=== PATIENT | female | born 1990 | race Caucasian/White ===

== ENCOUNTER 2016-05-02 10:08 | Outpatient (CLI) | payer OTHER ==
[2016-05-02 10:33] LABS: Appearance,Urine Cloudy (Clear); Bilirubin,Urine Negative (Negative); Glucose,Urine (UA) Negative (Negative); Ketones,Urine Negative (Negative); Leukocyte Esterase,Urine Large (Negative); Nitrite,Urine Negative (Negative); Particle Count 21190; Protein,Urine 1+ (Negative); RBC,Urine 2 /hpf (0-5); Specific Gravity,Urine 1.013 (1.001-1.035); Squamous Epithelial Cell,Urine 43 /hpf (0-4); UA Billing (MACRO vs. MICRO) MICRO; Urobilinogen,Urine <2.0 mg/dL (<2.0); WBC,Urine 28 /hpf (0-5)
[2016-05-02 11:05] LABS: Basophils # (A) 0.1 k/uL (0-0.2); Basophils % (A) 1 %; CH 29.3; Eosinophils # (A) 0.1 k/uL (0-0.7); Eosinophils % (A) 1 %; HCT 35.5 % (34.0-46.0); HDW 2.64; HGB 11.9 gm/dL (11.4-16.0); Luc # (Auto) 0.38; Luc % (Auto) 3; Lymphocytes # (A) 1.6 k/uL (1.0-4.8); Lymphocytes % (A) 15 %; MCHC 33.5 g/dL (31.0-37.0); MCV 86.8 fL (80.0-100.0); Mean Platelet Volume 8.3; Monocytes # (A) 0.4 k/uL (0-1.0); Monocytes % (A) 4 %; Neutrophils # (A) 8.5 k/uL (1.3-7.7); Neutrophils % (A) 77 %; RBC 4.09 m/uL (3.80-5.40); RDW 14.5 % (11.5-15.5); WBC 11.1 k/uL (3.8-10.6); WBC (Perox) 11.94
[2016-05-02 11:26] LABS: ALT 25 U/L (9-52); AST 20 U/L (14-36); LDH 371 U/L (313-618); Non-African American GFR(MDRD) >60 (>60 ml/min/1.73 sqM); Uric Acid 5.3 mg/dL (3.7-7.4)
== END 2016-05-02 12:05 | disposition home or self-care (01) ==
LOC: FBPOP 10:08
PROVIDERS: ATTEND Obstetrics & Gynecology
DX: Z53.9 Procedure and treatment not carried out, unspecified reason (principal)
CPT/HCPCS: 59025; 81001; 82565; 83615; 84450; 84460; 84550; 85025

== ENCOUNTER → 2016-05-05 | Outpatient (CLI) | payer OTHER ==
--- NOTE | 2016-05-05 10:27 | US ---
EXAMINATION TYPE: US OB anatomy transabd DATE OF EXAM: 05/05/2016 10:22 AM COMPARISON: NONE HISTORY: Large for Dates TECHNIQUE: TA EXAM MEASUREMENTS: GESTATIONAL AGE / DATING Physician Established: (35 weeks/5 days) EDC: 06/04/2016 Dates by LMP: (35 weeks/5 days) EDC: 06/04/2016 Dates by First Scan: No Previous Dates by Current Scan for: (35 weeks/5 days) EDC: 06/04/2016 SURVEY IUP: viable PLACENTA: Posterior, fundal PREVIA: no ANDREW: 24.3 cm wnl CERVICAL LENGTH difficult to measure d/t empty bladder and position BIOMETRY PRESENTATION: Breech LIE: Longitudinal, Spine to maternal right BPD: 9.1 cm 36 weeks / 5 days HC: 32.5 cm 36 weeks / 6 days AC: 32.4 cm 36 weeks / 2 days FL: 6.9 cm 35 weeks / 2 days ESTIMATED WEIGHT IN GRAMS: 2854 grams ESTIMATED WEIGHT IN LBS/OZS: 6 lbs. 5 oz. WEIGHT PERCENTAGE BASED ON ESTABLISHED DATE: 61.5 % HC/AC: 1.0 FL/AC: 21.1 HEART RATE: 142 bpm RHYTHM: Normal ANATOMY SEEN (within normal limits): * Lateral Vent (< 1 cm) 1.0 cm Suboptimal d/t position and age. * Cisterna Magna (< 1.1 cm) Suboptimal d/t position and age. cm * Nuchal Fold (< 0.6 cm) Suboptimal d/t position and age. cm * Cerebellum (varies with age) Suboptimal d/t position and age. cm Choroid Plexus (bilateral)Suboptimal d/t position and age. Midline Falx Cavus Septi Pellucidi Four Chamber Heart Outflow tracts: LVOT/RVOT Stomach Situs Nose / Lips Diaphragm Kidneys (bilateral) Bladder Cord Insert Three Vessel Cord Longitudinal Spine Suboptimal d/t position Transverse Spine Suboptimal d/t position Arms (bilateral) Legs (bilateral)2nd femur Suboptimal d/t position ANATOMY SEEN (does not appear within normal limits): ANATOMY NOT SEEN: MATERNAL WALL MEASUREMENT: cm from skin to anterior uterine wall (if exam limited due to body habitus ). IMPRESSION: Normal, viable 35+ week IUP
== END ==
LOC: RADUSWWP 09:19
PROVIDERS: ATTEND Obstetrics & Gynecology
DX: O36.63X0 Maternal care for excessive fetal growth, third trimester, not applicable or unspecified (principal)
CPT/HCPCS: 76811

== ENCOUNTER 2016-05-11 12:39 | Inpatient (IN) | payer OTHER ==
[2016-05-11] MEDS ORDERED: LACTATED RINGERS 1,000 ML IV SCH (13:15)
[2016-05-11] MEDS ORDERED: ceFAZolin 2 GM in SODIUM CHLORIDE 0.9% 100 ML IVPB ONE (13:22)
[2016-05-11] MEDS ORDERED: CITRIC ACID-SODIUM CITRATE 15 ML CUP PO ONE (13:22)
[2016-05-11] MEDS ORDERED: LABETALOL SYRINGE 5 MG/ML IVP STA (13:25)
[2016-05-11 13:41] LABS: Basophils # (A) 0.1 k/uL (0-0.2); Basophils % (A) 0 %; CH 29.2; CHCM 34.4; Eosinophils # (A) 0.1 k/uL (0-0.7); Eosinophils % (A) 1 %; HCT 34.5 % (34.0-46.0); HDW 2.67; HGB 12.1 gm/dL (11.4-16.0); Luc # (Auto) 0.43; Luc % (Auto) 4; Lymphocytes # (A) 1.9 k/uL (1.0-4.8); Lymphocytes % (A) 15 %; MCH 29.9 pg (25.0-35.0); MCHC 35.1 g/dL (31.0-37.0); MCV 85.2 fL (80.0-100.0); Mean Platelet Volume 8.5; Monocytes # (A) 0.5 k/uL (0-1.0); Monocytes % (A) 4 %; Neutrophils # (A) 9.6 k/uL (1.3-7.7); Neutrophils % (A) 77 %; RBC 4.05 m/uL (3.80-5.40); RDW 14.8 % (11.5-15.5); WBC 12.5 k/uL (3.8-10.6); WBC (Perox) 12.14
[2016-05-11 13:56] LABS: ALT 27 U/L (9-52); AST 20 U/L (14-36); Blood Urea Nitrogen 8 mg/dL (7-17); LDH 418 U/L (313-618); Non-African American GFR(MDRD) >60 (>60 ml/min/1.73 sqM)
--- NOTE | 2016-05-11 14:15 | P.HPOB ---
History of Present Illness H&P Date: 05/11/16 Chief Complaint: severe pre-eclampsia 26 year old presents at 36 weeks 5 days with severely elevated blood pressures and baby in breech presentation. She was diagnosed with mild pre- eclampsia last week with 24 hour urine protein of 425mg. Her BPs are up to 160/ 110 and so she now has pre-eclampsia with severe features. Review of Systems All systems: negative Constitutional: Denies chills, Denies fever Eyes: denies blurred vision, denies pain Ears, nose, mouth and throat: Denies headache, Denies sore throat Cardiovascular: Denies chest pain, Denies shortness of breath Respiratory: Denies cough Gastrointestinal: Denies abdominal pain, Denies diarrhea, Denies nausea, Denies vomiting Genitourinary: Denies dysuria, Denies hematuria Musculoskeletal: Denies myalgias Integumentary: Denies pruritus, Denies rash Neurological: Denies numbness, Denies weakness Psychiatric: Denies anxiety, Denies depression Endocrine: Denies fatigue, Denies weight change Past Medical History Past Medical History: No Reported History Additional Past Medical History / Comment(s): OB history: she has had care with me since the first trimester. A+, abs neg, Rub Imm, HEp B neg. History of Any Multi-Drug Resistant Organisms: None Reported Past Surgical History: No Surgical Hx Reported Past Psychological History: Anxiety Smoking Status: Former smoker Past Alcohol Use History: None Reported Past Drug Use History: None Reported Medications and Allergies Home Medications Medication Instructions Recorded Confirmed Type Pnv with Ca,No.72/Iron/FA 1 each PO DAILY 05/02/16 05/11/16 History [ Plus Tablet] Allergies Allergy/AdvReac Type Severity Reaction Status Date / Time No Known Allergies Allergy Verified 05/11/16 12:54 Exam Osteopathic Statement: *. No significant issues noted on an osteopathic structural exam other than those noted in the History and Physical/Consult. - Vital Signs Vital signs: Intake and Output 05/10/16 05/11/16 05/11/16 22:59 06:59 14:59 Other: Weight 103.419 kg Patient Weight 05/12/16 06:59 Weight 103.419 kg Heart: RRR Lungs: CTAB Abdomen: soft, nontender Extremeties: neg paddy's Results Result Diagrams: 05/11/16 13:27 05/11/16 13:27 Abnormal Lab Results - Last 24 Hours (Table) 05/11/16 Range/Units 13:27 WBC 12.5 H (3.8-10.6) k/uL Neutrophils # 9.6 H (1.3-7.7) k/uL Assessment and Plan (1) Pre-eclampsia, severe Status: Acute Plan: 1. prep for primary low transverse 2. antihypertensives 3. mag sulfate after delivery
[2016-05-11 14:22] LABS: INR 0.9 (<1.1); Partial Thromboplastin Time 22.9 sec (22.0-30.0); Prothrombin Time 9.4 sec (9.0-12.0)
[2016-05-11] MEDS ORDERED: KETOROLAC 30 MG/ML 1 ML VIAL ONE (14:36)
[2016-05-11] MEDS ORDERED: ONDANSETRON 4 MG/2 ML VIAL ONE (14:36)
[2016-05-11] MEDS ORDERED: ePHEDrine 50 MG/ML 1 ML AMP ONE (14:36)
[2016-05-11] MEDS ORDERED: MORPHINE SULFATE (PF) 0.3 MG/0.3 ML SYR ONE (14:36)
[2016-05-11] MEDS ORDERED: NALBUPHINE 10 MG/ML AMPUL ONE (14:36)
[2016-05-11] MEDS ORDERED: LABETALOL 5 MG/ML VIAL MDV ONE (14:36)
[2016-05-11] MEDS ORDERED: OXYTOCIN 10 UNIT/ML 1 ML VIAL IM ONE (14:36)
[2016-05-11] MEDS ORDERED: diphenhydrAMINE 50 MG/ML 1 ML VIAL ONE (14:36)
[2016-05-11] MEDS ORDERED: diphenhydrAMINE 25 MG CAP PO PRN (15:22)
[2016-05-11] MEDS ORDERED: diphenhydrAMINE 50 MG/ML 1 ML VIAL IVP PRN ×2 (15:22)
[2016-05-11] MEDS ORDERED: ACETAMINOPHEN TAB 325 MG TAB PO PRN (15:22)
[2016-05-11] MEDS ORDERED: NALOXONE 0.4 MG/ML 1 ML VIAL IV PRN (15:22)
[2016-05-11] MEDS ORDERED: Acetaminophen-Codeine 300-30mg TAB PO PRN (15:22)
[2016-05-11] MEDS ORDERED: LANOLIN CREAM 5 GM TUBE TOPICAL PRN (15:22)
[2016-05-11] MEDS ORDERED: METOCLOPRAMIDE 5 MG/ML 2 ML VIAL IVP PRN (15:22)
[2016-05-11] MEDS ORDERED: SIMETHICONE 80 MG CHEWABLE PO PRN (15:22)
[2016-05-11] MEDS ORDERED: ONDANSETRON 4 MG/2 ML VIAL IVP PRN (15:22)
[2016-05-11] MEDS ORDERED: ZOLPIDEM 5 MG TAB PO PRN (15:22)
[2016-05-11] MEDS ORDERED: diphenhydrAMINE 50 MG CAP PO PRN (15:22)
[2016-05-11] MEDS ORDERED: MAGNESIUM SULFATE-WATER PMX 4 GM in WATER FOR INJECTION 50 50ML.BAG IVPB ONE (15:23)
[2016-05-11] MEDS ORDERED: OXYTOCIN 30 UNITS/500 ML NS 30 UNIT in SALINE 1 500ML.BAG IV SCH (15:30)
[2016-05-11] MEDS: MAGNESIUM SULFATE-WATER PMX 20 GM in WATER FOR INJECTION 1 500ML.BAG IV SCH (16:58)
[2016-05-11] MEDS: LACTATED RINGERS 1,000 ML IV SCH (18:09)
[2016-05-11] MEDS: KETOROLAC 30 MG/ML 1 ML VIAL IVP SCH (18:11)
[2016-05-12] MEDS: KETOROLAC 30 MG/ML 1 ML VIAL IVP SCH ×4 (00:10→17:38)
[2016-05-12] MEDS: LACTATED RINGERS 1,000 ML IV SCH (01:16)
[2016-05-12] MEDS: SENNOSIDES-DOCUSATE SODIUM 1 EACH TAB PO SCH ×2 (01:17→07:57)
[2016-05-12] MEDS: MAGNESIUM SULFATE-WATER PMX 20 GM in WATER FOR INJECTION 1 500ML.BAG IV SCH (03:00)
[2016-05-12 06:47] LABS: Basophils % (A) 0 %; CH 28.9; CHCM 33.1; Eosinophils # (A) 0.1 k/uL (0-0.7); Eosinophils % (A) 1 %; HCT 30.7 % (34.0-46.0); HDW 2.46; HGB 10.2 gm/dL (11.4-16.0); Luc # (Auto) 0.39; Luc % (Auto) 3; Lymphocytes # (A) 1.5 k/uL (1.0-4.8); Lymphocytes % (A) 12 %; MCH 29.3 pg (25.0-35.0); MCHC 33.3 g/dL (31.0-37.0); MCV 87.8 fL (80.0-100.0); Mean Platelet Volume 7.5; Monocytes # (A) 0.5 k/uL (0-1.0); Monocytes % (A) 4 %; Neutrophils # (A) 10.4 k/uL (1.3-7.7); Neutrophils % (A) 81 %; RDW 14.8 % (11.5-15.5); WBC 12.8 k/uL (3.8-10.6); WBC (Perox) 13.86
--- NOTE | 2016-05-12 07:18 | P.PNOBGPC ---
Subjective - Subjective Principal diagnosis: S/P 1*LTCS POD #1 Interval history: Patient seen and examined. Denies N/V, F/C, CP, SOB, calf pain. BPs are much better controlled. Patient reports: Reports appetite normal, Reports pain well controlled, Denies nauseated [place]: doing well Objective - Vital Signs Latest vital signs: Vital Signs Temp Pulse Pulse Resp BP Pulse Ox 05/12/16 04:00 98.3 F 91 18 111/74 98 05/12/16 00:00 97.7 F 81 18 106/67 98 05/11/16 20:00 98.6 F 87 20 105/61 95 05/11/16 17:45 97.7 F 81 16 126/67 05/11/16 17:30 73 16 139/71 96 05/11/16 17:15 80 16 146/73 97 05/11/16 17:00 82 16 149/72 96 05/11/16 16:45 97.3 F L 85 16 143/71 97 05/11/16 16:30 72 16 142/67 05/11/16 16:15 75 16 187/93 98 05/11/16 16:00 74 16 137/74 100 05/11/16 15:45 80 16 128/69 99 05/11/16 15:29 97.6 F 84 16 133/84 100 Intake and Output 05/11/16 05/12/16 05/12/16 22:59 06:59 14:59 Intake Total 500 Output Total 175 400 Balance -175 100 Intake: Intake, IV Titration 500 Amount Magnesium Sulfate-Water 500 Pmx 20 gm In Water For Injection 1 500ml.bag @ 2 GM/HR 50 mls/hr IV .Q10H [facility] Rx#:[id number] Output: Urine 175 400 Other: Voiding Method Indwelling Catheter - Exam Lungs: bilateral: normal Chest: Normal S1, Normal S2 Extremities: Present: normal Abdomen: Present: normal appearance, soft. Absent: distention, tenderness Incision: Present: normal, dry, intact Uterus: Present: normal, firm - Labs Labs: Abnormal Lab Results - Last 24 Hours (Table) 05/11/16 05/12/16 Range/Units 13:27 06:33 WBC 12.5 H 12.8 H (3.8-10.6) k/uL RBC 3.50 L (3.80-5.40) m/uL Hgb 10.2 L (11.4-16.0) gm/dL Hct 30.7 L (34.0-46.0) % Neutrophils # 9.6 H 10.4 H (1.3-7.7) k/uL Assessment and Plan (1) Pre-eclampsia, severe Current Visit: Yes Status: Acute Code(s): O14.10 - SEVERE PRE-ECLAMPSIA, UNSPECIFIED TRIMESTER SNOMED Code(s): 87052109 (2) Status post primary low transverse section Narrative/Plan: 1. d/c mag sulfate 2. remove catheter 3. increase ambulation 4. reg diet with flatus Current Visit: Yes Status: Acute Code(s): Z98.891 - HISTORY OF UTERINE SCAR FROM PREVIOUS SURGERY SNOMED Code(s): 223256167
--- NOTE | 2016-05-12 08:41 | P.OP ---
Date of Procedure: 05/11/16 Preoperative Diagnosis: 1. at 36 and 4 2. Preeclampsia severe features 3. Breech presentation Postoperative Diagnosis: 1. at 36 and 4 2. Preeclampsia severe features 3. Breech presentation Procedure(s) Performed: Primary low transverse Anesthesia: spinal Surgeon: Isabel Coretz Nurse Extern #1: Wayne Mir Estimated Blood Loss (ml): 500 IV fluids (ml): 600 Urine output (ml): 100 Pathology: other (Placenta) Condition: stable Disposition: floor Operative Findings: Viable female, Apgars 8, 9, weight 7 lbs. 8 oz. Description of Procedure: Patient was taken to the operating room where spinal anesthesia was found be adequate. She was prepped and draped in normal sterile fashion in dorsal supine position with a leftward tilt. Pfannenstiel skin incision was made the scalpel and carried through to the underlying layer of fascia with the scalpel. Fascia was incised in midline and carried bilaterally with the Villalobos scissors. The superior aspect of the fascial incision was grasped with Steve clamps elevated and the underlying rectus muscles dissected off with the Villalobos's. Attention was then turned to inferior aspect of same incision which in a similar fashion was grasped tented up and the underlying rectus muscles dissected off with the Villalobos's. The rectus muscles were the midline and the peritoneum was identified tented up and entered sharply with the scalpel. The incision was extended superiorly and inferiorly with good visualization of the bladder. The bladder blade was inserted and the vesicouterine peritoneum was incised the Metzenbaums then carried bilaterally and bladder flap created digitally. A low transverse incision was then made on the uterus with the scalpel. This was carried bilaterally and digital manner. Infant's head delivered atraumatically, nose and mouth bulb suctioned, cord clamped and cut, handed off to waiting nurses. Apgars 8,9, weight 7 lbs. 8 oz. Placenta delivered manually, intact with three-vessel cord. The uterus is exteriorized and cleared of all clots and debris. The uterine incision was closed with 0 Vicryl in a running locked fashion. Second layer of the same sutures used in imbricating fashion to obtain excellent hemostasis. Bladder flap was then reapproximated using 2-0 Vicryl in a running fashion. Both ovaries and tubes appeared normal. The uterus was placed back into the abdomen. The peritoneum was reapproximated using 2-0 Vicryl in a running fashion. The muscles were reapproximated using 2-0 Vicryl in interrupted fashion. The fascia was reapproximated using 0 Vicryl in a running fashion. The subcutaneous tissues closed with 3-0 Vicryl running fashion. The skin was closed lara. Patient tolerated the procedure well, sponge and instrument counts were correct times 2 and she was taken to the recovery room in stable condition.
--- NOTE | 2016-05-12 10:57 | P.PN ---
Progress Note - Text 0710 Anesthesia POD 1. Patient is status post section under spinal anesthesia with intra-thecal preservative free morphine 300 g. Mild pruritus, good post-op analgesia, and no headache or other complication.
[2016-05-12] MEDS ORDERED: MEASLES-MUMPS-RUBELLA VACC/PF 12,500 UNIT/0.5 ML VIAL SQ ONE (16:28)
[2016-05-13] MEDS: KETOROLAC 30 MG/ML 1 ML VIAL IVP SCH
[2016-05-13 02:04] VITALS: RESP 16
[2016-05-13] MEDS: SENNOSIDES-DOCUSATE SODIUM 1 EACH TAB PO SCH ×2 (02:05→07:38)
[2016-05-13] MEDS: Acetaminophen-Codeine 300-30mg TAB PO PRN ×2 (03:10→09:36)
[2016-05-13] MEDS: IBUPROFEN 600 MG TAB PO PRN ×2 (05:58→13:25)
--- NOTE | 2016-05-13 07:11 | P.PNOBGPC ---
Subjective - Subjective Principal diagnosis: S/P 1*LTCS POD #2 Interval history: Patient seen and examined. Denies N/V, F/C, CP, SOB, headache or calf pain. BPs have been normal. Patient reports: Reports appetite normal, Reports voiding normally, Reports pain well controlled, Reports ambulating normally [place]: doing well Objective - Vital Signs Latest vital signs: Vital Signs Temp Pulse Resp BP Pulse Ox 05/13/16 00:15 98.6 F 90 16 126/73 05/12/16 15:52 98.6 F 90 18 143/96 97 05/12/16 11:50 98.6 F 91 16 120/73 05/12/16 07:41 98.3 F 85 16 111/66 Intake and Output 05/12/16 05/13/16 05/13/16 22:59 06:59 14:59 Output Total 300 Balance -300 Output: Urine 300 Other: # Voids 1 - Exam Lungs: bilateral: normal Chest: Normal S1, Normal S2 Extremities: Present: normal Abdomen: Present: normal appearance, soft. Absent: distention, tenderness Incision: Present: normal, dry, intact Uterus: Present: normal, firm Assessment and Plan (1) Pre-eclampsia, severe Current Visit: Yes Status: Acute Code(s): O14.10 - SEVERE PRE-ECLAMPSIA, UNSPECIFIED TRIMESTER SNOMED Code(s): 65705402 (2) Status post primary low transverse section Narrative/Plan: 1. cont pp care 2. possible D/C later this afternoon. Current Visit: Yes Status: Acute Code(s): Z98.891 - HISTORY OF UTERINE SCAR FROM PREVIOUS SURGERY SNOMED Code(s): 541971751
[2016-05-13 07:37] VITALS: BP 126/78
[2016-05-13 16:06] VITALS: PULSE 96; TEMP 98.5
--- NOTE | 2016-05-18 16:51 | P.DS ---
Providers Date of admission: 05/11/16 13:23 Expected date of discharge: 05/18/16 Attending physician: Isabel Cortez - Discharge Diagnosis(es) (1) Pre-eclampsia, severe Status: Acute (2) Status post primary low transverse section Status: Acute Hospital Course: Pt presented with pre-eclampsia with severe features. She underwent a primary c- section and had an uncomplicated post course. She will be discharged POD #2 in stable condition to follow up with me in 6 weeks. Patient Condition at Discharge: Good Plan - Discharge Summary New Discharge Prescriptions: Acetaminophen-Codeine 300-30mg [Tylenol w/codeine #3] 2 each PO Q4HR PRN #30 tab PRN Reason: Moderate To Severe Pain Ibuprofen [Motrin] 600 mg PO Q6HR PRN #30 tab PRN Reason: Mild Pain Or Fever >= 100.5 Discharge Medication List Pnv with Ca,No.72/Iron/FA [ Plus Tablet] 1 each PO DAILY 05/02/16 [ History] Acetaminophen-Codeine 300-30mg [Tylenol w/codeine #3] 2 each PO Q4HR PRN #30 tab 05/13/16 [Rx] Ibuprofen [Motrin] 600 mg PO Q6HR PRN #30 tab 05/13/16 [Rx] Follow up Appointment(s)/Referral(s): Isabel Cortez DO [Doctor of Osteopathic Medicine] - 1 Week Discharge Disposition: HOME SELF-CARE
== END 2016-05-13 18:44 | disposition home or self-care (01) | DRG 766 ==
LOC: FBPOP 12:39 → 4FBP 13:23
PROVIDERS: ADMIT Obstetrics & Gynecology; ATTEND Obstetrics & Gynecology
PROC: 10D00Z1 Extraction of Products of Conception, Low, Open Approach (ICD-10-PCS; principal; 2016-05-11 14:58)
PROC: 3E0134Z Introduction of Serum, Toxoid and Vaccine into Subcutaneous Tissue, Percutaneous Approach (ICD-10-PCS; 2016-05-12)
DX: O14.14 Severe pre-eclampsia complicating childbirth (principal); O32.1XX0 Maternal care for breech presentation, not applicable or unspecified; Z37.0 Single live birth; Z3A.36 36 weeks gestation of pregnancy; Z87.891 Personal history of nicotine dependence; Z23 Encounter for immunization; Z79.899 Other long term (current) drug therapy; Z86.59 Personal history of other mental and behavioral disorders; L29.9 Pruritus, unspecified; T41.3X5A Adverse effect of local anesthetics, initial encounter; Y92.230 Patient room in hospital as the place of occurrence of the external cause
CPT/HCPCS: 59025; 82565; 83615; 84450; 84460; 84520; 84550; 85025; 85610; 85730; 86850; 86900; 86901; 88307; 90471; 90707; 96360; 96375; 99215

== ENCOUNTER 2016-05-19 10:00 | Observation (INO) | payer OTHER ==
--- NOTE | 2016-05-19 11:19 | ED ---
Recheck HPI - General Source: patient, RN notes reviewed Mode of arrival: ambulatory Limitations: no limitations <Sugar Santoro - Last Filed: 05/19/16 13:19> <Reza Alexander - Last Filed: 05/19/16 14:22> - General Chief Complaint: Recheck/Abnormal Lab/Rx Stated Complaint: HTN Time Seen by Provider: 05/19/16 10:53 - History of Present Illness Initial Comments: Patient is a 26-year-old female presents emergency room for evaluation. Patient is 8 days . Patient states she had a section. Patient states she had preeclampsia. Patient states that she was advised to keep an eye on her blood pressure. Patient states her blood pressure went up a few days ago when she began developing swelling in her bilateral lower extremities about 3 days ago and headache yesterday. Patient states the swelling in her legs has subsided but that she come in to be evaluated. Patient states is her first . Patient states she had gestational diabetes. Patient denies significant past medical history. Patient denies chest pain or shortness of breath. Patient states having a 3 out of 10 headache. She denies fevers or chills. Patient denies any significant abdominal pain. Patient denies drainage or redness from incisional site a section. (Sugar Santoro) - Related Data Home Medications Medication Instructions Recorded Confirmed Pnv with Ca,No.72/Iron/FA 1 tab PO DAILY 05/02/16 05/19/16 [ Plus Tablet] Acetaminophen-Codeine 300-30mg 2 tab PO HS PRN 05/19/16 05/19/16 [Tylenol w/codeine #3] Ibuprofen [Motrin] 600 mg PO Q4H PRN 05/19/16 05/19/16 Allergies Allergy/AdvReac Type Severity Reaction Status Date / Time No Known Allergies Allergy Verified 05/19/16 11:14 Review of Systems ROS Other: All systems not noted in ROS Statement are negative. <Sugar Santoro - Last Filed: 05/19/16 13:19> ROS Other: All systems not noted in ROS Statement are negative. <Reza Alexander - Last Filed: 05/19/16 14:22> ROS Statement: Those systems with pertinent positive or pertinent negative responses have been documented in the HPI. Past Medical History Past Medical History: No Reported History Additional Past Medical History / Comment(s): OB history: she has had care with me since the first trimester. A+, abs neg, Rub Imm, HEp B neg. pre eclampsia History of Any Multi-Drug Resistant Organisms: None Reported Past Surgical History: Section Past Psychological History: Anxiety Smoking Status: Former smoker Past Alcohol Use History: None Reported Past Drug Use History: None Reported <Sugar Santoro - Last Filed: 05/19/16 13:19> General Exam Limitations: no limitations General appearance: alert, in no apparent distress Head exam: Present: atraumatic, normocephalic, normal inspection Eye exam: Present: normal appearance ENT exam: Present: normal exam Neck exam: Present: normal inspection Respiratory exam: Present: normal lung sounds bilaterally. Absent: respiratory distress Cardiovascular Exam: Present: regular rate, normal rhythm, normal heart sounds GI/Abdominal exam: Present: soft, tenderness (Healing incision site from section over suprapubic area. No erythema or drainage from the area.) , normal bowel sounds. Absent: distended, guarding, rebound, rigid Extremities exam: Present: normal inspection Back exam: Present: normal inspection Neurological exam: Present: alert, oriented X3, CN II-XII intact, normal gait Psychiatric exam: Present: normal affect, normal mood Skin exam: Present: warm, dry, intact, normal color. Absent: rash <Sugar Santoro - Last Filed: 05/19/16 13:19> General appearance: alert, in no apparent distress Head exam: Present: atraumatic, normocephalic, normal inspection Eye exam: Present: normal appearance, PERRL, EOMI. Absent: scleral icterus, conjunctival injection, periorbital swelling ENT exam: Present: normal exam, mucous membranes moist Neck exam: Present: normal inspection. Absent: tenderness, meningismus, lymphadenopathy Respiratory exam: Present: normal lung sounds bilaterally. Absent: respiratory distress, wheezes, rales, rhonchi, stridor Cardiovascular Exam: Present: regular rate, normal rhythm, normal heart sounds. Absent: systolic murmur, diastolic murmur, rubs, gallop, clicks GI/Abdominal exam: Present: soft, normal bowel sounds. Absent: distended, tenderness, guarding, rebound, rigid Extremities exam: Present: normal inspection, full ROM, normal capillary refill. Absent: tenderness, pedal edema, joint swelling, calf tenderness Back exam: Present: normal inspection Neurological exam: Present: alert, oriented X3, CN II-XII intact Psychiatric exam: Present: normal affect, normal mood Skin exam: Present: warm, dry, intact, normal color. Absent: rash <Reza Alexander - Last Filed: 05/19/16 14:22> - General Exam Comments Initial Comments: Sitting in exam room, no acute distress. (Sugar Santoro) Course <Sugar Santoro - Last Filed: 05/19/16 13:19> <Reza Alexander - Last Filed: 05/19/16 14:22> Vital Signs 05/19/16 05/19/16 10:04 13:53 Temperature 98.7 F 98.5 F Pulse Rate 90 86 Respiratory 16 16 Rate Blood Pressure 154/86 142/74 O2 Sat by Pulse 98 98 Oximetry - Reevaluation(s) Reevaluation #1: 05/19/16 14:[address] Mancini patient to be admitted for further evaluation of vital signs, liver enzymes (Reza Alexander) Medical Decision Making - Lab Data Result diagrams: 05/19/16 11:34 05/19/16 11:34 <Sugar Santoro - Last Filed: 05/19/16 13:19> - Lab Data Result diagrams: 05/19/16 11:34 05/19/16 11:34 <Reza Alexander - Last Filed: 05/19/16 14:22> - Medical Decision Making 18 female in the ER for evaluation of postop preeclampsia, preeclampsia, patient will be admitted for observation (Reza Alexander) - Lab Data Lab Results 05/19/16 05/19/16 05/19/16 Range/Units 11:34 11:34 11:34 WBC 9.5 (3.8-10.6) k/uL RBC 4.13 (3.80-5.40) m/uL Hgb 11.5 (11.4-16.0) gm/dL Hct 35.9 (34.0-46.0) % MCV 86.9 (80.0-100.0) fL MCH 27.8 (25.0-35.0) pg MCHC 32.0 (31.0-37.0) g/dL RDW 14.4 (11.5-15.5) % Plt Count 494 H (150-450) k/uL Neutrophils % 70 % Lymphocytes % 19 % Monocytes % 4 % Eosinophils % 2 % Basophils % 0 % Neutrophils # 6.6 (1.3-7.7) k/uL Lymphocytes # 1.8 (1.0-4.8) k/uL Monocytes # 0.4 (0-1.0) k/uL Eosinophils # 0.2 (0-0.7) k/uL Basophils # 0.0 (0-0.2) k/uL Sodium 140 (137-145) mmol/L Potassium 4.6 (3.5-5.1) mmol/L Chloride 105 (98-107) mmol/L Carbon Dioxide 28 (22-30) mmol/L Anion Gap 7 mmol/L BUN 11 (7-17) mg/dL Creatinine 0.67 (0.52-1.04) mg/dL Est GFR (MDRD) Af Amer >60 (>60 ml/min/1.73 sqM) Est GFR (MDRD) Non-Af >60 (>60 ml/min/1.73 sqM) Glucose 81 (74-99) mg/dL Calcium 9.5 (8.4-10.2) mg/dL Magnesium 1.7 (1.6-2.3) mg/dL Total Bilirubin 0.4 (0.2-1.3) mg/dL AST 40 H (14-36) U/L ALT 57 H (9-52) U/L Alkaline Phosphatase 85 (38-126) U/L Total Protein 6.5 (6.3-8.2) g/dL Albumin 3.3 L (3.5-5.0) g/dL Urine Color Yellow Urine Appearance Clear (Clear) Urine pH 7.5 (5.0-8.0) Ur Specific [place] 1.011 (1.001-1.035) Urine Protein Negative (Negative) Urine Glucose (UA) Negative (Negative) Urine Ketones Negative (Negative) Urine Blood Moderate H (Negative) Urine Nitrite Negative (Negative) Urine Bilirubin Negative (Negative) Urine Urobilinogen <2.0 (<2.0) mg/dL Ur Leukocyte Esterase Negative (Negative) Urine RBC 3 (0-5) /hpf Urine WBC 5 (0-5) /hpf Ur Squamous Epith Cells <1 (0-4) /hpf Urine Mucus Rare H (None) /hpf Disposition Decision Date: 05/19/16 <Sugar Santoro - Last Filed: 05/19/16 13:19> <Reza Alexander - Last Filed: 05/19/16 14:22> Clinical Impression: headache, Elevated liver enzymes Disposition: ADMITTED IP TO THIS [facility] Condition: Stable Referrals: Ottoniel George DO [Primary Care Provider] - 1-2 days
[2016-05-19 11:53] LABS: Basophils % (A) 0 %; CH 28.9; CHCM 33.4; Eosinophils # (A) 0.2 k/uL (0-0.7); Eosinophils % (A) 2 %; HCT 35.9 % (34.0-46.0); HDW 2.77; HGB 11.5 gm/dL (11.4-16.0); Luc # (Auto) 0.32; Luc % (Auto) 3; Lymphocytes # (A) 1.8 k/uL (1.0-4.8); Lymphocytes % (A) 19 %; MCH 27.8 pg (25.0-35.0); MCV 86.9 fL (80.0-100.0); Mean Platelet Volume 6.4; Monocytes # (A) 0.4 k/uL (0-1.0); Monocytes % (A) 4 %; Neutrophils # (A) 6.6 k/uL (1.3-7.7); Neutrophils % (A) 70 %; RBC 4.13 m/uL (3.80-5.40); RDW 14.4 % (11.5-15.5); WBC 9.5 k/uL (3.8-10.6); WBC (Perox) 10.04
[2016-05-19 11:55] LABS: Appearance,Urine Clear (Clear); Bilirubin,Urine Negative (Negative); Glucose,Urine (UA) Negative (Negative); Ketones,Urine Negative (Negative); Leukocyte Esterase,Urine Negative (Negative); Mucus,Urine Rare /hpf; Nitrite,Urine Negative (Negative); PH, Urine 7.5 (5.0-8.0); Particle Count 1930; Protein,Urine Negative (Negative); RBC,Urine 3 /hpf (0-5); Specific Gravity,Urine 1.011 (1.001-1.035); Squamous Epithelial Cell,Urine <1 /hpf (0-4); UA Billing (MACRO vs. MICRO) MICRO; Urobilinogen,Urine <2.0 mg/dL (<2.0); WBC,Urine 5 /hpf (0-5)
[2016-05-19 12:03] LABS: ALT 57 U/L (9-52); AST 40 U/L (14-36); Alkaline Phosphatase 85 U/L (38-126); Anion Gap 7 mmol/L; Blood Urea Nitrogen 11 mg/dL (7-17); Calcium 9.5 mg/dL (8.4-10.2); Carbon Dioxide 28 mmol/L (22-30); Chloride 105 mmol/L (98-107); Glucose 81 mg/dL (74-99); Magnesium 1.7 mg/dL (1.6-2.3); Non-African American GFR(MDRD) >60 (>60 ml/min/1.73 sqM); Potassium 4.6 mmol/L (3.5-5.1); Sodium 140 mmol/L (137-145); Total Bilirubin 0.4 mg/dL (0.2-1.3); Total Protein 6.5 g/dL (6.3-8.2)
[2016-05-19] MEDS ORDERED: ONDANSETRON 4 MG/2 ML VIAL IVP PRN (13:28)
[2016-05-19] MEDS ORDERED: NALOXONE 0.4 MG/ML 1 ML VIAL IV PRN (13:28)
[2016-05-19] MEDS ORDERED: SODIUM CHLORIDE 0.9% 1,000 ML IV SCH (13:30)
[2016-05-19] MEDS ORDERED: MAGNESIUM SULFATE-D5W PMX 1 GM in DEXTROSE/WATER 1 100ML.BAG IVPB STA (13:35)
[2016-05-19] MEDS ORDERED: MAGNESIUM SULFATE-WATER PMX 4 GM in WATER FOR INJECTION 50 50ML.BAG IVPB ONE (14:25)
[2016-05-19] MEDS ORDERED: LIDOCAINE 1% 20 ML VIAL (10MG/ML) FOR IV START INTRADERMA PRN (14:25)
[2016-05-19] MEDS ORDERED: LACTATED RINGERS 1,000 ML IV SCH (14:30)
[2016-05-19] MEDS ORDERED: CALCIUM GLUCONATE 1,000 MG in SODIUM CHLORIDE 0.9% 100 ML IVPB ONE (14:30)
[2016-05-19] MEDS ORDERED: MAGNESIUM SULFATE-D5W PMX 1 GM in DEXTROSE/WATER 1 100ML.BAG IVPB SCH (14:45)
[2016-05-19 14:58] VITALS: BMI 40.1
[2016-05-19] MEDS: MAGNESIUM SULFATE-WATER PMX 20 GM in WATER FOR INJECTION 1 500ML.BAG IV SCH (15:15)
--- NOTE | 2016-05-19 17:24 | P.HPOB ---
History of Present Illness H&P Date: 05/19/16 Chief Complaint: Headache, elevated liver enzymes This is a 26-year-old female status post primary section on 05/11/2016 due to severe preeclampsia and breech presentation. She complains of a headache since yesterday morning that has not dissipated despite ibuprofen and Tylenol 3. She denies any blurry vision. She has swelling in her legs that has gone down from her delivery time. Her surgical pain is minimal. She does take some Tylenol 3 at night and Motrin through the day. She was seen in the emergency room and her blood pressures were normal however her liver enzymes had increased to just above normal as compared to her previous admission for preeclampsia. Her urine protein was negative today. She is being admitted for seizure prophylaxis with magnesium sulfate. Obstetrical history: . One section. Review of Systems Constitutional: Denies chills, Denies fever Cardiovascular: Reports leg edema, Denies chest pain, Denies shortness of breath Gastrointestinal: Reports abdominal pain (Mild incisional pain) Genitourinary: Denies abnormal vaginal bleeding Neurological: Reports headaches, Denies visual changes Past Medical History Additional Past Medical History / Comment(s): Preeclampsia diagnosed at 37 weeks History of Any Multi-Drug Resistant Organisms: None Reported Past Surgical History: Section Past Anesthesia/Blood Transfusion Reactions: No Reported Reaction Past Psychological History: Anxiety Smoking Status: Former smoker Past Alcohol Use History: None Reported Past Drug Use History: None Reported - Past Family History Mother Family Medical History: No Reported History Medications and Allergies Home Medications Medication Instructions Recorded Confirmed Type Pnv with Ca,No.72/Iron/FA 1 tab PO DAILY 05/02/16 05/19/16 History [ Plus Tablet] Acetaminophen-Codeine 300-30mg 2 tab PO HS PRN 05/19/16 05/19/16 History [Tylenol w/codeine #3] Ibuprofen [Motrin] 600 mg PO Q4H PRN 05/19/16 05/19/16 History Allergies Allergy/AdvReac Type Severity Reaction Status Date / Time No Known Allergies Allergy Verified 05/19/16 11:14 Exam Osteopathic Statement: *. No significant issues noted on an osteopathic structural exam other than those noted in the History and Physical/Consult. - Vital Signs Vital signs: Vital Signs Temp Pulse Pulse Resp BP BP Pulse Ox 05/19/16 14:47 97.8 F 70 18 137/94 05/19/16 13:53 98.5 F 86 16 142/74 98 Intake and Output 05/19/16 05/19/16 05/19/16 06:59 14:59 22:59 Intake Total 50 Output Total 600 Balance -550 Intake: Intake, IV Titration 50 Amount Magnesium Sulfate-Water 50 Pmx 4 gm In Water For Injection 50 50ml.bag @ 150 mls/hr IVPB ONCE ONE Rx#:[id number] Output: Urine 600 Other: # Voids 1 Weight 96.43 kg Patient Weight 05/20/16 06:59 Weight 96.43 kg Gen.: Well-developed well-nourished female in no acute distress, alert and oriented 3 HEENT: Within normal limits Heart: Regular rate and rhythm Lungs: Clear to auscultation bilaterally Abdomen: Soft, mild tenderness over her lower abdomen. Incision is clean dry and intact with Steri-Strips in place. Extremities: Deep tendon reflexes 2 over 4 bilaterally, trace edema Results Result Diagrams: 05/19/16 11:34 05/19/16 11:34 Assessment and Plan (1) Preeclampsia in period Status: Acute Plan: I have admitted the patient for seizure prophylaxis with magnesium sulfate for 24 hours. Will repeat liver enzymes and CBC in the a.m. We will closely monitor blood pressures and symptoms.
[2016-05-19] MEDS: IBUPROFEN 600 MG TAB PO PRN (18:18)
[2016-05-19] MEDS: Acetaminophen-Codeine 300-30mg TAB PO PRN (21:37)
[2016-05-20] MEDS: MAGNESIUM SULFATE-WATER PMX 20 GM in WATER FOR INJECTION 1 500ML.BAG IV SCH ×2 (01:40→11:26)
[2016-05-20] MEDS: IBUPROFEN 600 MG TAB PO PRN ×2 (06:40→13:10)
[2016-05-20 07:49] LABS: Aty Lym Flag Slight; CH 28.5; CHCM 32.3; HCT 34.6 % (34.0-46.0); HDW 2.68; HGB 11.1 gm/dL (11.4-16.0); MCH 28.5 pg (25.0-35.0); MCHC 32.3 g/dL (31.0-37.0); MCV 88.4 fL (80.0-100.0); Mean Platelet Volume 6.5; RBC 3.91 m/uL (3.80-5.40); RDW 14.4 % (11.5-15.5); WBC 7.5 k/uL (3.8-10.6); WBC (Perox) 8.27
[2016-05-20 08:15] LABS: Anion Gap 10 mmol/L; Blood Urea Nitrogen 8 mg/dL (7-17); Calcium 7.2 mg/dL (8.4-10.2); Carbon Dioxide 24 mmol/L (22-30); Chloride 103 mmol/L (98-107); Glucose 123 mg/dL (74-99); Non-African American GFR(MDRD) >60 (>60 ml/min/1.73 sqM); Potassium 3.8 mmol/L (3.5-5.1); Sodium 137 mmol/L (137-145)
[2016-05-20 08:16] LABS: ALT 57 U/L (9-52); AST 59 U/L (14-36); Alkaline Phosphatase 88 U/L (38-126); Total Bilirubin 0.5 mg/dL (0.2-1.3); Total Protein 6.3 g/dL (6.3-8.2)
[2016-05-20 08:19] LABS: Magnesium 6.3 mg/dL (1.6-2.3)
--- NOTE | 2016-05-20 08:41 | P.PNOBGPC ---
Subjective - Subjective Principal diagnosis: S/P 1* LTCS POD #9 Interval history: Patient was readmitted yesterday with headache and elevated liver enzymes. She was put on Mag sulfate for seizure prophylaxis because she was delivered for pre -eclampsia. Her BPs have all been normal since she was seen in ER yesterday. HEr headache seems to throb and hurt more when she gets up and better with laying down. This could be a headache related to pre-eclampsia or a spinal headache. She also has a history of migraines. Will continue mag until 24 hours , which is this afternoon but also have anesthesia see her. Patient reports: Reports appetite normal, Reports voiding normally, Reports pain well controlled, Reports ambulating normally Objective - Vital Signs Latest vital signs: Vital Signs Temp Pulse Pulse Resp BP BP Pulse Ox 05/20/16 04:00 97.9 F 81 15 127/78 05/20/16 00:00 96.6 F L 77 15 116/78 100 05/19/16 20:00 97.0 F L 82 15 117/75 98 05/19/16 14:47 97.8 F 70 18 137/94 05/19/16 13:53 98.5 F 86 16 142/74 98 Intake and Output 05/19/16 05/20/16 05/20/16 22:59 06:59 14:59 Intake Total 650 500 Output Total 1200 1100 Balance -550 -600 Intake: Intake, IV Titration 50 500 Amount Magnesium Sulfate-Water 500 Pmx 20 gm In Water For Injection 1 500ml.bag @ 2 GM/HR 50 mls/hr IV .Q10H [facility] Rx#:[id number] Magnesium Sulfate-Water 50 Pmx 4 gm In Water For Injection 50 50ml.bag @ 150 mls/hr IVPB ONCE ONE Rx#:[id number] Oral 600 Output: Urine 1200 1100 Other: # Voids 1 1 - Exam Lungs: bilateral: normal Chest: Normal S1, Normal S2 Extremities: Present: normal Abdomen: Present: normal appearance, soft. Absent: distention, tenderness Incision: Present: normal, dry, intact Uterus: Present: normal, firm - Labs Labs: Abnormal Lab Results - Last 24 Hours (Table) 05/20/16 Range/Units 07:30 Glucose 123 H (74-99) mg/dL Calcium 7.2 L (8.4-10.2) mg/dL Magnesium 6.3 H* (1.6-2.3) mg/dL AST 59 H (14-36) U/L ALT 57 H (9-52) U/L Albumin 3.2 L (3.5-5.0) g/dL Assessment and Plan (1) Status post primary low transverse section Current Visit: No Status: Acute Code(s): Z98.891 - HISTORY OF UTERINE SCAR FROM PREVIOUS SURGERY SNOMED Code(s): 178672445 (2) Preeclampsia in period Current Visit: Yes Status: Acute Code(s): O14.95 - UNSPECIFIED PRE-ECLAMPSIA , COMPLICATING THE PUERPERIUM SNOMED Code(s): 048113730 (3) headache Narrative/Plan: 1. cont mag sulfate until 24 hours 2. anesthesia consult Current Visit: Yes Status: Acute Code(s): O90.89 - OTH COMPLICATIONS OF THE PUERPERIUM, NEC; R51 - HEADACHE SNOMED Code(s): 243614862
[2016-05-20] MEDS: ACETAMINOPHEN TAB 325 MG TAB PO PRN ×2 (08:43→14:05)
[2016-05-20 09:17] LABS: Add Differential Manual Differential
[2016-05-20 09:19] LABS: Manual Review Performed; Nucleated Red Blood Cells 0 /100 WBC (0-0); Total Cells Counted 100
--- NOTE | 2016-05-20 10:44 | P.PN ---
Progress Note - Text 05/20 26-year-old female status post by Dr. Cortez. Patient readmitted with complaints of high blood pressure and elevated liver enzymes. Patient is being treated with IV magnesium and mentioned to the nurse this morning that she has a throbbing headache when she got up from her bed. Dr. Cortez asked the anesthesia Department evaluate the patient for spinal headache went and saw the patient this morning and I do not feel that the headache is because of posterior puncture and she is 9 days out of the procedure. I reviewed the anesthetic record and spinal was done with Dr. Ovalle with 25-gauge needle with single attempt. At this time I do not work treated with IV caffeine because of her blood pressure problems I did mention to the nurse that IV fluids should be given to her. These let us know if there is any other issues..
[2016-05-20 11:49] VITALS: RESP 16
[2016-05-20] MEDS ORDERED: PRENATAL VIT-IRON-FOLIC ACID 1 EACH CAP PO SCH (12:00)
[2016-05-20] MEDS: Acetaminophen-Codeine 300-30mg TAB PO PRN (20:06)
--- NOTE | 2016-05-21 07:40 | P.PNOBGPC ---
Subjective - Subjective Patient reports: Reports appetite normal, Reports voiding normally, Reports pain well controlled, Reports ambulating normally : doing well Objective - Vital Signs Latest vital signs: Vital Signs Temp Pulse Resp BP BP Pulse Ox 05/21/16 04:00 97.4 F L 71 16 137/91 05/21/16 00:00 98.1 F 68 16 122/74 05/20/16 16:00 98.1 F 83 16 131/86 05/20/16 11:47 97.7 F 69 16 109/69 05/20/16 08:45 95.9 F L 77 18 138/73 100 Intake and Output 05/20/16 05/21/16 05/21/16 22:59 06:59 14:59 Output Total 600 Balance -600 Output: Urine 600 - Exam Lungs: bilateral: normal Chest: Normal S1, Normal S2 Extremities: Present: normal Abdomen: Present: normal appearance, soft. Absent: distention, tenderness Incision: Present: normal, dry, intact Uterus: Present: normal, firm - Labs Labs: Abnormal Lab Results - Last 24 Hours (Table) 05/20/16 05/20/16 Range/Units 07:30 07:30 Hgb 11.1 L (11.4-16.0) gm/dL Plt Count 486 H (150-450) k/uL Glucose 123 H (74-99) mg/dL Calcium 7.2 L (8.4-10.2) mg/dL Magnesium 6.3 H* (1.6-2.3) mg/dL AST 59 H (14-36) U/L ALT 57 H (9-52) U/L Albumin 3.2 L (3.5-5.0) g/dL Assessment and Plan (1) Elevated liver enzymes Narrative/Plan: This is hospital day #2. Patient's feeling much better today. She states that her headache has for the most part resolved. Vital signs are stable. She did have continued mild elevation of her liver transaminases yesterday. I ordered repeat blood work this morning. If her liver tests are stable she is stable for discharge home follow up with Dr. Cortez next week as scheduled and most likely a repeat liver tests at that time. Patient was evaluated by Dr. Waldrop and felt not to have a spinal headache. Current Visit: Yes Status: Acute Code(s): R74.8 - ABNORMAL LEVELS OF OTHER SERUM ENZYMES SNOMED Code(s): 478516967
--- NOTE | 2016-05-21 07:44 | P.DS ---
Providers Date of admission: 05/19/16 13:29 Expected date of discharge: 05/21/16 Attending physician: Isabel Cortez Consults: 05/20/16 08:42 Consult Anesthesia Routine Consulting Provider: Anesthesia,Services Consult Reason/Comments: possible spinal headace Primary care physician: Ottoniel George - Discharge Diagnosis(es) (1) Elevated liver enzymes Current Visit: Yes Status: Acute Hospital Course: Please see dictated H&P and progress notes per Dr. Mayo on Dr. Cortez. In brief summary this is a 26-year-old female who was readmitted for suspected atypical preeclampsia. Patient was placed on IV magnesium and blood pressures remain stable. She did have a mild liver transaminase elevation. Patient was also evaluated by anesthesia for her headache and this was thought not to be related to her spinal. On hospital day #2 patient was felt to be stable for discharge home follow up with Dr. Cortez later this week. Patient Condition at Discharge: Good Plan - Discharge Summary Discharge Medication List Pnv with Ca,No.72/Iron/FA [ Plus Tablet] 1 tab PO DAILY 05/02/16 [ History] Acetaminophen-Codeine 300-30mg [Tylenol w/codeine #3] 2 tab PO HS PRN 05/19/16 [ History] Ibuprofen [Motrin] 600 mg PO Q4H PRN 05/19/16 [History] Follow up Appointment(s)/Referral(s): Isabel Cortez DO [Doctor of Osteopathic Medicine] - 05/26/16 (Please follow- up with Dr. Cortez on May 26 as scheduled.) Patient Instructions/Handouts: Preeclampsia (DC) Activity/Diet/Wound Care/Special Instructions: No heavy lifting or strenuous activity as previously discussed with Dr. Cortez. Discharge Disposition: HOME SELF-CARE
[2016-05-21 08:19] VITALS: BP 111/63; PULSE 68; TEMP 96.8
[2016-05-21 08:25] LABS: Bilirubin, Delta 0.2 mg/dL (0.0-0.2); Total Bilirubin 0.6 mg/dL (0.2-1.3); Total Protein 6.6 g/dL (6.3-8.2)
== END 2016-05-21 09:10 | disposition home or self-care (01) ==
LOC: EC 10:00 → 4FBP 13:29
PROVIDERS: ADMIT Obstetrics & Gynecology; ATTEND Obstetrics & Gynecology
DX: O90.89 Other complications of the puerperium, not elsewhere classified (principal); O14.95 Unspecified pre-eclampsia, complicating the puerperium; Z87.891 Personal history of nicotine dependence; R74.8 Abnormal levels of other serum enzymes
CPT/HCPCS: 36415; 80053 ×2; 80076; 83735 ×2; 85025 ×2; 81001; 99284; 96365; G0378 ×3; J3475 ×4; 96375

== ENCOUNTER 2018-05-28 16:04 | Inpatient (IN) | payer MEDICAID, OTHER ==
--- NOTE | 2018-05-28 16:39 | ED ---
Psych HPI - General Source: patient, RN notes reviewed Mode of arrival: ambulatory Limitations: no limitations <Robbie Manzanares - Last Filed: 05/28/18 16:39> <Reza Alexander - Last Filed: 05/28/18 19:11> - General Chief Complaint: Psychiatric Symptoms Stated Complaint: Mental health Time Seen by Provider: 05/28/18 16:27 - History of Present Illness Initial Comments: This a 28-year-old female presents emergency Department with police for a herpetic pickup. Patient states that she has been compliant to her [facility] plan Patient has been seen in concert and scheduled see a therapist tomorrow. Patient states she was feeling depressed and suicidal last week but states that she contracted for safety. Patient states she is depressed and he may related at this time. Patient denies any physical complaints denies any drug or alcohol abuse. Patient did state that she told her friend who probably told her mother that she was suicidal last week. Patient offers no other complaints at this time. (Robbie Manzanares) - Related Data Home Medications Medication Instructions Recorded Confirmed ARIPiprazole [Abilify] 15 mg PO DAILY 05/28/18 05/28/18 FLUoxetine HCL [PROzac] 20 mg PO HS 05/28/18 05/28/18 Phentermine HCl [Adipex-P] 37.5 mg PO DAILY 05/28/18 05/28/18 Allergies Allergy/AdvReac Type Severity Reaction Status Date / Time No Known Allergies Allergy Verified 05/28/18 16:49 Review of Systems ROS Other: All systems not noted in ROS Statement are negative. <Robbie Manzanares - Last Filed: 05/28/18 16:39> ROS Other: All systems not noted in ROS Statement are negative. <Reza Alexander - Last Filed: 05/28/18 19:11> ROS Statement: Those systems with pertinent positive or pertinent negative responses have been documented in the HPI. Past Medical History Past Medical History: No Reported History Additional Past Medical History / Comment(s): Preeclampsia diagnosed at 37 weeks History of Any Multi-Drug Resistant Organisms: None Reported Past Surgical History: Section Past Anesthesia/Blood Transfusion Reactions: No Reported Reaction Past Psychological History: Anxiety, Bipolar, Depression Smoking Status: Former smoker Past Alcohol Use History: None Reported Past Drug Use History: Marijuana - Past Family History Mother Family Medical History: No Reported History <Robbie Manzanares - Last Filed: 05/28/18 16:39> General Exam Limitations: no limitations General appearance: alert, in no apparent distress Head exam: Present: atraumatic, normocephalic, normal inspection Eye exam: Present: normal appearance, PERRL, EOMI. Absent: scleral icterus, conjunctival injection, periorbital swelling ENT exam: Present: normal exam, normal oropharynx, mucous membranes moist Neck exam: Present: normal inspection, full ROM. Absent: tenderness, meningismus, lymphadenopathy Respiratory exam: Present: normal lung sounds bilaterally. Absent: respiratory distress, wheezes, rales, rhonchi, stridor Cardiovascular Exam: Present: regular rate, normal rhythm, normal heart sounds. Absent: systolic murmur, diastolic murmur, rubs, gallop, clicks GI/Abdominal exam: Present: soft, normal bowel sounds. Absent: distended, tenderness, guarding, rebound, rigid Neurological exam: Present: alert, oriented X3, CN II-XII intact Psychiatric exam: Present: depressed Skin exam: Present: warm, dry, intact, normal color. Absent: rash <Robbie Manzanares M - Last Filed: 05/28/18 16:39> General appearance: alert, in no apparent distress Head exam: Present: atraumatic, normocephalic, normal inspection Eye exam: Present: normal appearance, PERRL, EOMI. Absent: scleral icterus, conjunctival injection, periorbital swelling ENT exam: Present: normal exam, mucous membranes moist Neck exam: Present: normal inspection. Absent: tenderness, meningismus, lymphadenopathy Respiratory exam: Present: normal lung sounds bilaterally. Absent: respiratory distress, wheezes, rales, rhonchi, stridor Cardiovascular Exam: Present: regular rate, normal rhythm, normal heart sounds. Absent: systolic murmur, diastolic murmur, rubs, gallop, clicks GI/Abdominal exam: Present: soft, normal bowel sounds. Absent: distended, tenderness, guarding, rebound, rigid Extremities exam: Present: normal inspection, full ROM, normal capillary refill. Absent: tenderness, pedal edema, joint swelling, calf tenderness Back exam: Present: normal inspection Neurological exam: Present: alert, oriented X3, CN II-XII intact Psychiatric exam: Present: normal affect, normal mood Skin exam: Present: warm, dry, intact, normal color. Absent: rash <Reza Alexander - Last Filed: 05/28/18 19:11> Course Vital Signs 05/28/18 16:18 Temperature 98.1 F Pulse Rate 102 H Respiratory 18 Rate Blood Pressure 137/97 O2 Sat by Pulse 99 Oximetry Medical Decision Making <Reza Alexander - Last Filed: 05/28/18 19:11> - Medical Decision Making 28 female the ER for evaluation psychiatric illness. Patient be admitted for inpatient psychiatric treatment and evaluation (Reza Alexander) - Lab Data Lab Results 05/28/18 Range/Units 16:38 Urine Opiates Screen Detected H (NotDetected) Ur Oxycodone Screen Not Detected (NotDetected) Urine Methadone Screen Not Detected (NotDetected) Ur Propoxyphene Screen Not Detected (NotDetected) Ur Barbiturates Screen Not Detected (NotDetected) U Tricyclic Antidepress Not Detected (NotDetected) Ur Phencyclidine Scrn Not Detected (NotDetected) Ur Amphetamines Screen Detected H (NotDetected) U Methamphetamines Scrn Detected H (NotDetected) U Benzodiazepines Scrn Not Detected (NotDetected) Urine Cocaine Screen Detected H (NotDetected) U Marijuana (THC) Screen Detected H (NotDetected) Disposition Is patient prescribed a controlled substance at d/c from ED?: No <Robbie Manzanares - Last Filed: 05/28/18 16:39> Is patient prescribed a controlled substance at d/c from ED?: No <Reza Alexander - Last Filed: 05/28/18 19:11> Clinical Impression: Depression Disposition: TRANSFER TO PSYCH HOSP/UNIT Condition: Fair
[2018-05-28 17:08] LABS: Amphetamine Screen,Urine Detected (NotDetected); Cocaine Screen,Urine Detected (NotDetected); Opiate Screen,Urine Detected (NotDetected); Phencyclidine Screen,Urine Not Detected (NotDetected); Urn Cannabinoid Scrn Detected (NotDetected)
[2018-05-28 17:09] LABS: Barbiturate Screen,Urine Not Detected (NotDetected); Benzodiazepines Screen,Urine Not Detected (NotDetected); Methadone Screen, Urine Not Detected (NotDetected); Oxycodone Screen, Urine Not Detected (NotDetected); Tricyclic Antidepressant,Urine Not Detected (NotDetected)
[2018-05-28] MEDS ORDERED: MAGNESIUM HYDROXIDE 2,400 MG/10 ML CUP PO PRN (19:16)
[2018-05-28] MEDS ORDERED: MAG HYDROX/AL HYDROX/SIMETH 30 ML CUP PO PRN (19:16)
[2018-05-28] MEDS ORDERED: ACETAMINOPHEN TAB 325 MG TAB PO PRN (19:16)
[2018-05-28] MEDS ORDERED: ZIPRASIDONE 20 MG VIAL IM PRN (19:16)
[2018-05-28] MEDS ORDERED: LORazepam 2 MG/ML INJ IM PRN (19:21)
[2018-05-28] MEDS ORDERED: FLUoxetine HCL 20 MG CAP PO SCH (21:00)
[2018-05-28 21:25] VITALS: RESP 18; BMI 38.7
[2018-05-28] MEDS: LORazepam 1 MG TAB PO PRN (22:27)
[2018-05-29 06:30] VITALS: BP 136/80; PULSE 96; TEMP 98.5
[2018-05-29] MEDS ORDERED: ARIPiprazole 15 MG TAB PO SCH (09:00)
[2018-05-29] MEDS: LORazepam 1 MG TAB PO PRN (09:07)
[2018-05-29 09:12] LABS: Basophils # (A) 0.1 k/uL (0-0.2); Basophils % (A) 1 %; Eosinophils # (A) 0.2 k/uL (0-0.7); Eosinophils % (A) 3 %; HCT 42.9 % (34.0-46.0); HGB 14.2 gm/dL (11.4-16.0); Lymphocytes # (A) 2.4 k/uL (1.0-4.8); Lymphocytes % (A) 41 %; MCH 29.9 pg (25.0-35.0); MCHC 33.2 g/dL (31.0-37.0); Mean Platelet Volume 7.7; Monocytes # (A) 0.3 k/uL (0-1.0); Monocytes % (A) 5 %; Neutrophils # (A) 2.7 k/uL (1.3-7.7); Neutrophils % (A) 46 %; Platelet Count 441 k/uL (150-450); RBC 4.77 m/uL (3.80-5.40); RDW 13.8 % (11.5-15.5); WBC 5.7 k/uL (3.8-10.6)
[2018-05-29 09:56] LABS: ALT 68 U/L (9-52); AST 36 U/L (14-36); Albumin 3.8 g/dL (3.5-5.0); Alkaline Phosphatase 71 U/L (38-126); Anion Gap 6 mmol/L; Blood Urea Nitrogen 5 mg/dL (7-17); Calcium 9.3 mg/dL (8.4-10.2); Carbon Dioxide 29 mmol/L (22-30); Chloride 105 mmol/L (98-107); Cholesterol 158 mg/dL (<200); Glucose 98 mg/dL (74-99); HDL Cholesterol 30 mg/dL (40-60); LDL Cholesterol,Calculated 96 mg/dL (0-99); Potassium 4.1 mmol/L (3.5-5.1); Sodium 140 mmol/L (137-145); Total Bilirubin 0.7 mg/dL (0.2-1.3); Total Protein 6.5 g/dL (6.3-8.2); Triglycerides 158 mg/dL (<150)
--- NOTE | 2018-05-29 10:56 | P.DS ---
Providers Date of admission: 05/28/18 19:06 Expected date of discharge: 05/29/18 Attending physician: Beto Calle DO Consults: 05/28/18 19:16 Consult Physician Routine Consulting Provider: Zan García Consult Reason/Comments: H&P and medical Do you want consulting provider notified?: Yes Primary care physician: Ottoniel George - Discharge Diagnosis(es) (1) Depression Current Visit: Yes Status: Acute Priority: Low Hospital Course: Allergies Allergy/AdvReac Type Severity Reaction Status Date / Time No Known Allergies Allergy Verified 05/28/18 16:49 Vital Signs Temp 98.5 F 05/29/18 06:14 Pulse 96 05/29/18 06:14 Resp 18 05/29/18 06:14 BP 136/80 05/29/18 06:14 Pulse Ox 100 05/28/18 21:04 Intake & Output 05/28/18 05/29/18 05/29/18 18:59 06:59 18:59 Weight 90.718 kg Laboratory Last Values WBC 5.7 k/uL (3.8-10.6) 05/29/18 08:34 RBC 4.77 m/uL (3.80-5.40) 05/29/18 08:34 Hgb 14.2 gm/dL (11.4-16.0) 05/29/18 08:34 Hct 42.9 % (34.0-46.0) 05/29/18 08:34 MCV 90.0 fL (80.0-100.0) 05/29/18 08:34 MCH 29.9 pg (25.0-35.0) 05/29/18 08:34 MCHC 33.2 g/dL (31.0-37.0) 05/29/18 08:34 RDW 13.8 % (11.5-15.5) 05/29/18 08:34 Plt Count 441 k/uL (150-450) 05/29/18 08:34 Neutrophils % 46 % 05/29/18 08:34 Lymphocytes % 41 % 05/29/18 08:34 Monocytes % 5 % 05/29/18 08:34 Eosinophils % 3 % 05/29/18 08:34 Basophils % 1 % 05/29/18 08:34 Neutrophils # 2.7 k/uL (1.3-7.7) 05/29/18 08:34 Lymphocytes # 2.4 k/uL (1.0-4.8) 05/29/18 08:34 Monocytes # 0.3 k/uL (0-1.0) 05/29/18 08:34 Eosinophils # 0.2 k/uL (0-0.7) 05/29/18 08:34 Basophils # 0.1 k/uL (0-0.2) 05/29/18 08:34 Sodium 140 mmol/L (137-145) 05/29/18 08:34 Potassium 4.1 mmol/L (3.5-5.1) 05/29/18 08:34 Chloride 105 mmol/L (98-107) 05/29/18 08:34 Carbon Dioxide 29 mmol/L (22-30) 05/29/18 08:34 Anion Gap 6 mmol/L 05/29/18 08:34 BUN 5 mg/dL (7-17) L 05/29/18 08:34 Creatinine 0.62 mg/dL (0.52-1.04) 05/29/18 08:34 Est GFR (CKD-EPI)AfAm >90 (>60 ml/min/1.73 sqM) 05/29/18 08:34 Est GFR (CKD-EPI)NonAf >90 (>60 ml/min/1.73 sqM) 05/29/18 08:34 Glucose 98 mg/dL (74-99) 05/29/18 08:34 Calcium 9.3 mg/dL (8.4-10.2) 05/29/18 08:34 Total Bilirubin 0.7 mg/dL (0.2-1.3) 05/29/18 08:34 AST 36 U/L (14-36) 05/29/18 08:34 ALT 68 U/L (9-52) H 05/29/18 08:34 Alkaline Phosphatase 71 U/L (38-126) 05/29/18 08:34 Total Protein 6.5 g/dL (6.3-8.2) 05/29/18 08:34 Albumin 3.8 g/dL (3.5-5.0) 05/29/18 08:34 Triglycerides 158 mg/dL (<150) H 05/29/18 08:34 Cholesterol 158 mg/dL (<200) 05/29/18 08:34 LDL Cholesterol, Calc 96 mg/dL (0-99) 05/29/18 08:34 HDL Cholesterol 30 mg/dL (40-60) L 05/29/18 08:34 Urine Opiates Screen Detected (NotDetected) H 05/28/18 16:38 Ur Oxycodone Screen Not Detected (NotDetected) 05/28/18 16:38 Urine Methadone Screen Not Detected (NotDetected) 05/28/18 16:38 Ur Propoxyphene Screen Not Detected (NotDetected) 05/28/18 16:38 Ur Barbiturates Screen Not Detected (NotDetected) 05/28/18 16:38 U Tricyclic Antidepress Not Detected (NotDetected) 05/28/18 16:38 Ur Phencyclidine Scrn Not Detected (NotDetected) 05/28/18 16:38 Ur Amphetamines Screen Detected (NotDetected) H 05/28/18 16:38 U Methamphetamines Scrn Detected (NotDetected) H 05/28/18 16:38 U Benzodiazepines Scrn Not Detected (NotDetected) 05/28/18 16:38 Urine Cocaine Screen Detected (NotDetected) H 05/28/18 16:38 U Marijuana (THC) Screen Detected (NotDetected) H 05/28/18 16:38 Assessment and Plan Assessment: This is a pleasant 23-year-old female who states he started having anxiety attack at work. She states that she does not know what causes it she just held overwhelming anxiety. She went out to get in her car and states that her maurice would not work. She states that she gets intermittent chest pains when she has using anxiety attacks. She was seen here in November and actually had blood work done to include cardiac enzymes. She had an EKG and a chest x-ray at that time all of which turned out to be normal. She states that the cardiac enzyme was initially abnormal but then was repeated and was normal. She has had several anxiety attacks since her visit here. She states she has been going to outpatient counselor who is concerned that her anxiety needs pharmacological treatment. She denies any current shortness of breath. She states the chest pain has resolved however she still feels very anxious. No fever or chills. No cough. No abdominal pain. No chance of . She denies depression. MD Complaint: anxiety - Related Data Home Medications: Previous Rx's Medication Instructions Recorded LORazepam [Ativan] 0.5 mg PO TID PRN #20 tab 02/12/14 Allergies/Adverse Reactions: Allergies Allergy/AdvReac Type Severity Reaction Status Date / Time No Known Allergies Allergy Verified 02/12/14 18:54 Past Medical History Past Medical History: No Reported History History of Any Multi-Drug Resistant Organisms: None Reported Past Surgical History: No Surgical Hx Reported Past Psychological History: Anxiety Smoking Status: Never smoker Past Alcohol Use History: None Reported Past Drug Use History: None Reported mental status examination: The patient presents alert, pleasant, and cooperative. There calmly seated without any agitated behavior. [She] reports that [her] mood is good. Affect is congruent and euthymic. [She] deny having any suicidal or homicidal ideation intent or plan. [She] denies any auditory or visual hallucinations. There is no evidence of any delusional thought content. [Her] thought process is linear and goal-directed. [Her] speech is fluent and nonpressured. [Her] memory and concentration is grossly intact for the purposes of this session. Plan:discharged to home and follow-up care at [facility] no medications written for the time of the 12 hour admission. Patient Condition at Discharge: Stable Plan - Discharge Summary Discharge Rx Participant: No New Discharge Prescriptions: Continue FLUoxetine HCL [PROzac] 20 mg PO HS ARIPiprazole [Abilify] 15 mg PO DAILY Discontinued Phentermine HCl [Adipex-P] 37.5 mg PO DAILY Discharge Medication List ARIPiprazole [Abilify] 15 mg PO DAILY 05/28/18 [History] FLUoxetine HCL [PROzac] 20 mg PO HS 05/28/18 [History] Follow up Appointment(s)/Referral(s): Ottoniel George DO [Primary Care Provider] - 1-2 days Patient Instructions/Handouts: Depression (ED) Discharge Disposition: HOME SELF-CARE
--- NOTE | 2018-05-29 17:32 | CONS ---
CONSULTATION DATE OF CONSULTATION: 05/29/2018. CONSULTATION: I came to see this patient in the psych unit at around 3 p.m. I was told that the patient had left AGAINST MEDICAL ADVICE earlier this morning. The consultation was not done by me. RADHA / KATYA: [id number] /
[2018-05-29 19:23] LABS: Hemoglobin A1C 5.9 % (4.0-6.0)
== END 2018-05-29 14:10 | disposition home or self-care (01) | DRG 880 ==
LOC: EC 16:04 → 3MHU 19:06
PROVIDERS: ADMIT Psychiatry & Neurology Psychiatry; ATTEND Psychiatry & Neurology Psychiatry
DX: F41.1 Generalized anxiety disorder (principal); F32.9 Major depressive disorder, single episode, unspecified; Z87.891 Personal history of nicotine dependence; Z79.899 Other long term (current) drug therapy
CPT/HCPCS: 80053; 80061; 80306; 82075; 83036; 84443; 85025; 99285

== ENCOUNTER 2018-06-16 17:24 | Emergency (ER) | payer OTHER ==
[2018-06-16 17:37] VITALS: TEMP 98.6
--- NOTE | 2018-06-16 19:25 | XR ---
EXAMINATION TYPE: XR Hip LT and AP Pelvis DATE OF EXAM: 06/16/2018 COMPARISON: NONE HISTORY: Leg pain TECHNIQUE: A single AP view of the pelvis is obtained. Two views of the left hip are obtained. FINDINGS: There is no sign of fracture nor dislocation. Hip joint space is normal. There is IUD noted . Pelvic ring is intact. Sacroiliac joints appear normal. Left hip joint space is normal. IMPRESSION: Normal pelvis and left hip exam.
--- NOTE | 2018-06-16 19:26 | XR ---
EXAMINATION TYPE: XR femur LT DATE OF EXAM: 06/16/2018 COMPARISON: NONE HISTORY: Pain TECHNIQUE: 4 views FINDINGS: I see no fracture nor dislocation. The joint and hip joint appear intact. The soft tissues appear normal. IMPRESSION: Negative left femur exam.
[2018-06-16 19:27] VITALS: BP 124/85; PULSE 69; RESP 16
--- NOTE | 2018-06-16 19:27 | XR ---
EXAMINATION TYPE: XR tibia fibula LT DATE OF EXAM: 06/16/2018 COMPARISON: NONE HISTORY: Pain TECHNIQUE: 3 views FINDINGS: Tibia and fibula appear intact. I see no fracture nor dislocation. This calcification poste rior to the distal tibia consistent with an old injury. IMPRESSION: No acute abnormality of the left tibia and fibula.
--- NOTE | 2018-06-16 19:27 | XR ---
EXAMINATION TYPE: XR knee 4V LT DATE OF EXAM: 06/16/2018 COMPARISON: NONE HISTORY: Pain TECHNIQUE: 4 views FINDINGS: I see no fracture nor dislocation. Knee joint spaces are fairly normal. There is no sign of joint effusion. IMPRESSION: Negative left knee exam.
--- NOTE | 2018-06-16 19:28 | XR ---
EXAMINATION TYPE: XR foot complete LT DATE OF EXAM: 06/16/2018 COMPARISON: NONE HISTORY: Pain TECHNIQUE: 3 views FINDINGS: Metatarsals appear intact. I see no fracture nor dislocation. Tarsal bones are intact. IMPRESSION: Negative left foot exam.
--- NOTE | 2018-06-16 19:29 | XR ---
EXAMINATION TYPE: XR ankle complete LT DATE OF EXAM: 06/16/2018 COMPARISON: NONE HISTORY: Ankle pain TECHNIQUE: 3 views FINDINGS: Ankle mortise is anatomic. Joint spaces are fairly normal. There is some amorphous calcific ation posterior to the distal tibia on the lateral view. This is consistent with an old injury. I see no acute fracture. IMPRESSION: There is evidence of old injury and probably old chip fracture of the posterior malleolus with soft tissue calcification. No acute fracture seen.
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
--- NOTE | 2018-06-16 20:36 | US ---
EXAMINATION TYPE: US venous doppler duplex LE LT DATE OF EXAM: 06/16/2018 7:55 PM COMPARISON: NONE CLINICAL HISTORY: Pain. Pain left leg SIDE PERFORMED: Left TECHNIQUE: The lower extremity deep venous system is examined utilizing real time linear array sonog anastacio with graded compression, doppler sonography and color-flow sonography. VESSELS IMAGED: External Iliac Vein (EIV) Common Femoral Vein Deep Femoral Vein Greater Saphenous Vein * Femoral Vein Popliteal Vein Small Saphenous Vein * Proximal Calf Veins (* superficial vessels) Left Leg: Negative for DVT IMPRESSION: Normal exam. No evidence of deep venous thrombosis in the left leg.
== END 2018-06-16 20:57 | disposition home or self-care (01) ==
LOC: EC 17:24
DX: M79.18 Myalgia, other site (principal); F31.9 Bipolar disorder, unspecified; F41.9 Anxiety disorder, unspecified; Z87.891 Personal history of nicotine dependence; Z79.899 Other long term (current) drug therapy
CPT/HCPCS: 73502; 99284

== ENCOUNTER 2021-02-07 17:35 | Emergency (ER) | payer OTHER ==
[2021-02-07] MEDS ORDERED: LORazepam 2 MG/ML INJ IM PRN (18:13)
[2021-02-07] MEDS ORDERED: HALOPERIDOL LACTATE 5 MG/ML 1 ML VIAL IM PRN (18:13)
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
[2021-02-07 21:19] LABS: Amphetamine Screen,Urine Not Detected (NotDetected); Barbiturate Screen,Urine Not Detected (NotDetected); Benzodiazepines Screen,Urine Not Detected (NotDetected); Cocaine Screen,Urine Not Detected (NotDetected); Methadone Screen, Urine Not Detected (NotDetected); Opiate Screen,Urine Not Detected (NotDetected); Oxycodone Screen, Urine Not Detected (NotDetected); Phencyclidine Screen,Urine Not Detected (NotDetected); Tricyclic Antidepressant,Urine Not Detected (NotDetected); Urn Cannabinoid Scrn Detected (NotDetected)
[2021-02-07 21:30] VITALS: BP 125/88; PULSE 98; RESP 18; TEMP 98.2
== END 2021-02-07 21:33 | disposition home or self-care (01) ==
LOC: EC 17:35 → SUPCPDRO 17:35 → EC 21:33
DX: F10.129 Alcohol abuse with intoxication, unspecified (principal)
CPT/HCPCS: 80306; 81025; 82075

== ENCOUNTER 2021-03-26 11:02 | Emergency (ER) | payer OTHER ==
[2021-03-26 11:11] VITALS: TEMP 97.2
[2021-03-26] MEDS ORDERED: ONDANSETRON 4 MG/2 ML VIAL IVP STA (11:43)
[2021-03-26] MEDS ORDERED: SODIUM CHLORIDE 0.9% 1,000 ML IV STA (11:43)
[2021-03-26 12:14] LABS: Basophils # (A) 0.1 k/uL (0-0.2); Basophils % (A) 1 %; Eosinophils # (A) 0.1 k/uL (0-0.7); Eosinophils % (A) 1 %; HCT 44.5 % (34.0-46.0); HGB 14.7 gm/dL (11.4-16.0); Lymphocytes # (A) 2.8 k/uL (1.0-4.8); Lymphocytes % (A) 42 %; MCH 32.3 pg (25.0-35.0); MCHC 32.9 g/dL (31.0-37.0); Mean Platelet Volume 7.2; Monocytes # (A) 0.3 k/uL (0-1.0); Monocytes % (A) 5 %; Neutrophils # (A) 3.1 k/uL (1.3-7.7); Neutrophils % (A) 47 %; Platelet Count 483 k/uL (150-450); RBC 4.54 m/uL (3.80-5.40); WBC 6.7 k/uL (3.8-10.6)
[2021-03-26 12:18] LABS: Appearance,Urine Clear (Clear); Bilirubin,Urine Negative (Negative); Blood,Urine Negative (Negative); Color,Urine Light Yellow; Glucose,Urine (UA) Negative (Negative); Ketones,Urine Negative (Negative); Leukocyte Esterase,Urine Negative (Negative); Nitrite,Urine Negative (Negative); Protein,Urine Negative (Negative); Specific Gravity,Urine 1.008 (1.001-1.035); Urobilinogen,Urine <2.0 mg/dL (<2.0)
[2021-03-26 12:24] LABS: ALT 13 U/L (4-34); AST 18 U/L (14-36); African American GFR (CKD) >90 (>60 ml/min/1.73 sqM); Albumin 4.3 g/dL (3.5-5.0); Alkaline Phosphatase 40 U/L (38-126); Anion Gap 9 mmol/L; Blood Urea Nitrogen <2 mg/dL (7-17); Carbon Dioxide 28 mmol/L (22-30); Chloride 104 mmol/L (98-107); Glucose 93 mg/dL (74-99); Lipase 48 U/L (23-300); Non-African American GFR(CKD) >90 (>60 ml/min/1.73 sqM); Potassium 4.2 mmol/L (3.5-5.1); Sodium 141 mmol/L (137-145); Total Bilirubin 0.7 mg/dL (0.2-1.3); Total Protein 7.4 g/dL (6.3-8.2)
--- NOTE | 2021-03-26 12:47 | ED ---
General Adult HPI - General Chief complaint: Nausea/Vomiting/Diarrhea Stated complaint: Female Time Seen by Provider: 03/26/21 11:11 Source: patient Mode of arrival: ambulatory Limitations: no limitations - History of Present Illness Initial comments: This 31-year-old female with a past medical history of polysubstance use presents to the emergency department with nausea and vomiting that began 2 days ago. Patient states she was watching a movie on the couch 2 days ago when she woke up in the position on the floor, patient states she is not sure if she had a seizure or not but does state she doesn't remember at all. She states later that night she vomited twice and had nausea for the remainder of the night. Patient denies any vomiting or loss of bowel or bladder during this episode or any since that episode. Patient denies having any convulsions, but states the room went dark and she doesn't remember everything. Patient states this did happen once when she was a teenager and she saw a neurologist and was assessed for seizures but was never diagnosed with seizure disorder. Patient ate she has also experienced intermittent headache but has a history of migraines in the past. Patient states she also is more anxious and states that feels like something is stuck in her vagina. Patient states she has an IUD in place and due to having this feeling the closest appointment to parris it price was on April 06, which she has scheduled. She denies having any vaginal discharge, however does state she did have some slight spotting last week. Patient was also concerned that she could have possible carbon monoxide poisoning due to her having this headache and her not having detector and her house. Patient denies any chest pain, shortness of breath, abdominal pain, loss of sensation to extremities, one-sided weakness, change in speech, neck or back pain, dizziness, vision loss. - Related Data Home Medications Medication Instructions Recorded Confirmed Vilazodone HCl [Viibryd] 40 mg PO DAILY 03/26/21 03/26/21 Allergies Allergy/AdvReac Type Severity Reaction Status Date / Time No Known Allergies Allergy Verified 03/26/21 12:07 Review of Systems ROS Statement: Those systems with pertinent positive or pertinent negative responses have been documented in the HPI. ROS Other: All systems not noted in ROS Statement are negative. Past Medical History Past Medical History: No Reported History Additional Past Medical History / Comment(s): Preeclampsia diagnosed at 37 weeks History of Any Multi-Drug Resistant Organisms: None Reported Past Surgical History: Section Past Anesthesia/Blood Transfusion Reactions: No Reported Reaction Past Psychological History: Anxiety, Bipolar, Depression Smoking Status: Vaper Past Alcohol Use History: Occasional Past Drug Use History: Cocaine, Marijuana, Methamphetamine, Opiates - Past Family History Mother Family Medical History: No Reported History General Exam Limitations: no limitations General appearance: alert, in no apparent distress Head exam: Present: atraumatic, normocephalic, normal inspection Eye exam: Present: normal appearance, EOMI ENT exam: Present: normal exam, mucous membranes moist Neck exam: Present: normal inspection, full ROM. Absent: tenderness, meningismus, lymphadenopathy Respiratory exam: Present: normal lung sounds bilaterally. Absent: respiratory distress, wheezes, rales, rhonchi, stridor Cardiovascular Exam: Present: regular rate, normal rhythm, normal heart sounds. Absent: systolic murmur, diastolic murmur, rubs, gallop, clicks GI/Abdominal exam: Present: soft, normal bowel sounds. Absent: distended, tenderness, guarding, rebound, rigid Speculum exam: Present: normal speculum exam (IUD in place with string coming from the cervix into vaginal opening. ). Absent: erythema, vaginal discharge, cervical discharge, vaginal bleeding, foreign body By manual exam: Absent: cervical motion tenderness Extremities exam: Present: full ROM, normal capillary refill. Absent: ten derness Back exam: Present: full ROM. Absent: tenderness, CVA tenderness (R), CVA tenderness (L), paraspinal tenderness, vertebral tenderness Neurological exam: Present: alert, oriented X3, CN II-XII intact, normal gait, reflexes normal, other ([id number], rapid alternating movements intact, 6 cardinal signs of gaze in tact. 5 out of 5 strength bilateral arms and 5 out of 5 strength bilateral legs). Absent: motor sensory deficit Psychiatric exam: Present: normal affect, normal mood Skin exam: Present: warm, dry, intact, normal color. Absent: rash Course Vital Signs 03/26/21 03/26/21 11:07 14:43 Temperature 97.2 F L Pulse Rate 97 82 Respiratory 20 16 Rate Blood Pressure 157/93 130/101 O2 Sat by Pulse 99 98 Oximetry - Reevaluation(s) Reevaluation #1: 03/26/21 14:29 Patient states she currently does not have any symptoms. She is not nauseous has not vomited for 2 days, does not feel confused or dizzy. Denies any headache or migraine. Denies any one-sided weakness, chest pain, shortness of breath. Medical Decision Making - Medical Decision Making This 31-year-old female presents to the emergency department with nausea and vomiting 2 days ago with possible loss of consciousness and seizure activity. Labs unremarkable, carbon dioxide Quant 2.1. Urine unremarkable. Toxicology with marijuana detected. Trichomonas culture negative. Chlamydia and gonorrhea urine pending. CT brain impression: No acute intracranial hemorrhage or midline shift seen. The ventricles insult, are within normal limits in size. Segundo/white matter differentiation is maintained. Lobes are intact and the visualized sinuses are clear. Patient currently states she is not experiencing any symptoms. She states she came in today just to be evaluated for her possible loss of consciousness/seizure activity 2 days ago along with her episode of nausea and vomiting that night. Patient informed that she cannot drive until she follows up with neurology. Patient sent home to follow-up with neurology in next 24-48 hours. Patient instructed to follow-up with primary care provider next 24-48 hours. Strict return precautions were given. Patient verbally agreed to plan. She is sent home in stable condition. Case discussed with Dr. Flores. - Lab Data Result diagrams: 03/26/21 12:02 03/26/21 12:02 Lab Results 03/26/21 03/26/21 03/26/21 Range/Units 12:02 12:02 12:02 WBC 6.7 (3.8-10.6) k/uL RBC 4.54 (3.80-5.40) m/uL Hgb 14.7 (11.4-16.0) gm/dL Hct 44.5 (34.0-46.0) % MCV 98.0 (80.0-100.0) fL MCH 32.3 (25.0-35.0) pg MCHC 32.9 (31.0-37.0) g/dL RDW 13.0 (11.5-15.5) % Plt Count 483 H (150-450) k/uL MPV 7.2 Neutrophils % 47 % Lymphocytes % 42 % Monocytes % 5 % Eosinophils % 1 % Basophils % 1 % Neutrophils # 3.1 (1.3-7.7) k/uL Lymphocytes # 2.8 (1.0-4.8) k/uL Monocytes # 0.3 (0-1.0) k/uL Eosinophils # 0.1 (0-0.7) k/uL Basophils # 0.1 (0-0.2) k/uL Carbon Monoxide, Quant (<10.0) % Sodium (137-145) mmol/L Potassium (3.5-5.1) mmol/L Chloride (98-107) mmol/L Carbon Dioxide (22-30) mmol/L Anion Gap mmol/L BUN (7-17) mg/dL Creatinine (0.52-1.04) mg/dL Est GFR (CKD-EPI)AfAm (>60 ml/min/1.73 sqM) Est GFR (CKD-EPI)NonAf (>60 ml/min/1.73 sqM) Glucose (74-99) mg/dL Plasma Lactic Acid Zeyad (0.7-2.0) mmol/L Calcium (8.4-10.2) mg/dL Total Bilirubin (0.2-1.3) mg/dL AST (14-36) U/L ALT (4-34) U/L Alkaline Phosphatase (38-126) U/L Total Protein (6.3-8.2) g/dL Albumin (3.5-5.0) g/dL Lipase (23-300) U/L Urine Color Light Yellow Urine Appearance Clear (Clear) Urine pH 8.0 (5.0-8.0) Ur Specific Henderson 1.008 (1.001-1.035) Urine Protein Negative (Negative) Urine Glucose (UA) Negative (Negative) Urine Ketones Negative (Negative) Urine Blood Negative (Negative) Urine Nitrite Negative (Negative) Urine Bilirubin Negative (Negative) Urine Urobilinogen <2.0 (<2.0) mg/dL Ur Leukocyte Esterase Negative (Negative) Urine HCG, Qual Not Detected (Not Detectd) Urine Opiates Screen (NotDetected) Ur Oxycodone Screen (NotDetected) Urine Methadone Screen (NotDetected) Ur Propoxyphene Screen (NotDetected) Ur Barbiturates Screen (NotDetected) U Tricyclic Antidepress (NotDetected) Ur Phencyclidine Scrn (NotDetected) Ur Amphetamines Screen (NotDetected) U Methamphetamines Scrn (NotDetected) U Benzodiazepines Scrn (NotDetected) Urine Cocaine Screen (NotDetected) U Marijuana (THC) Screen (NotDetected) Trichomonas Ag (Rapid) (Negative) 03/26/21 03/26/21 03/26/21 Range/Units 12:02 12:02 12:02 WBC (3.8-10.6) k/uL RBC (3.80-5.40) m/uL Hgb (11.4-16.0) gm/dL Hct (34.0-46.0) % MCV (80.0-100.0) fL MCH (25.0-35.0) pg MCHC (31.0-37.0) g/dL RDW (11.5-15.5) % Plt Count (150-450) k/uL MPV Neutrophils % % Lymphocytes % % Monocytes % % Eosinophils % % Basophils % % Neutrophils # (1.3-7.7) k/uL Lymphocytes # (1.0-4.8) k/uL Monocytes # (0-1.0) k/uL Eosinophils # (0-0.7) k/uL Basophils # (0-0.2) k/uL Carbon Monoxide, Quant (<10.0) % Sodium 141 (137-145) mmol/L Potassium 4.2 (3.5-5.1) mmol/L Chloride 104 (98-107) mmol/L Carbon Dioxide 28 (22-30) mmol/L Anion Gap 9 mmol/L BUN <2 L (7-17) mg/dL Creatinine 0.60 (0.52-1.04) mg/dL Est GFR (CKD-EPI)AfAm >90 (>60 ml/min/1.73 sqM) Est GFR (CKD-EPI)NonAf >90 (>60 ml/min/1.73 sqM) Glucose 93 (74-99) mg/dL Plasma Lactic Acid Zeyad 1.3 (0.7-2.0) mmol/L Calcium 9.0 (8.4-10.2) mg/dL Total Bilirubin 0.7 (0.2-1.3) mg/dL AST 18 (14-36) U/L ALT 13 (4-34) U/L Alkaline Phosphatase 40 (38-126) U/L Total Protein 7.4 (6.3-8.2) g/dL Albumin 4.3 (3.5-5.0) g/dL Lipase 48 (23-300) U/L Urine Color Urine Appearance (Clear) Urine pH (5.0-8.0) Ur Specific Henderson (1.001-1.035) Urine Protein (Negative) Urine Glucose (UA) (Negative) Urine Ketones (Negative) Urine Blood (Negative) Urine Nitrite (Negative) Urine Bilirubin (Negative) Urine Urobilinogen (<2.0) mg/dL Ur Leukocyte Esterase (Negative) Urine HCG, Qual (Not Detectd) Urine Opiates Screen Not Detected (NotDetected) Ur Oxycodone Screen Not Detected (NotDetected) Urine Methadone Screen Not Detected (NotDetected) Ur Propoxyphene Screen Not Detected (NotDetected) Ur Barbiturates Screen Not Detected (NotDetected) U Tricyclic Antidepress Not Detected (NotDetected) Ur Phencyclidine Scrn Not Detected (NotDetected) Ur Amphetamines Screen Not Detected (NotDetected) U Methamphetamines Scrn Not Detected (NotDetected) U Benzodiazepines Scrn Not Detected (NotDetected) Urine Cocaine Screen Not Detected (NotDetected) U Marijuana (THC) Screen Detected H (NotDetected) Trichomonas Ag (Rapid) (Negative) 03/26/21 03/26/21 Range/Units 12:32 14:39 WBC (3.8-10.6) k/uL RBC (3.80-5.40) m/uL Hgb (11.4-16.0) gm/dL Hct (34.0-46.0) % MCV (80.0-100.0) fL MCH (25.0-35.0) pg MCHC (31.0-37.0) g/dL RDW (11.5-15.5) % Plt Count (150-450) k/uL MPV Neutrophils % % Lymphocytes % % Monocytes % % Eosinophils % % Basophils % % Neutrophils # (1.3-7.7) k/uL Lymphocytes # (1.0-4.8) k/uL Monocytes # (0-1.0) k/uL Eosinophils # (0-0.7) k/uL Basophils # (0-0.2) k/uL Carbon Monoxide, Quant 2.1 (<10.0) % Sodium (137-145) mmol/L Potassium (3.5-5.1) mmol/L Chloride (98-107) mmol/L Carbon Dioxide (22-30) mmol/L Anion Gap mmol/L BUN (7-17) mg/dL Creatinine (0.52-1.04) mg/dL Est GFR (CKD-EPI)AfAm (>60 ml/min/1.73 sqM) Est GFR (CKD-EPI)NonAf (>60 ml/min/1.73 sqM) Glucose (74-99) mg/dL Plasma Lactic Acid Zeyad (0.7-2.0) mmol/L Calcium (8.4-10.2) mg/dL Total Bilirubin (0.2-1.3) mg/dL AST (14-36) U/L ALT (4-34) U/L Alkaline Phosphatase (38-126) U/L Total Protein (6.3-8.2) g/dL Albumin (3.5-5.0) g/dL Lipase (23-300) U/L Urine Color Urine Appearance (Clear) Urine pH (5.0-8.0) Ur Specific Henderson (1.001-1.035) Urine Protein (Negative) Urine Glucose (UA) (Negative) Urine Ketones (Negative) Urine Blood (Negative) Urine Nitrite (Negative) Urine Bilirubin (Negative) Urine Urobilinogen (<2.0) mg/dL Ur Leukocyte Esterase (Negative) Urine HCG, Qual (Not Detectd) Urine Opiates Screen (NotDetected) Ur Oxycodone Screen (NotDetected) Urine Methadone Screen (NotDetected) Ur Propoxyphene Screen (NotDetected) Ur Barbiturates Screen (NotDetected) U Tricyclic Antidepress (NotDetected) Ur Phencyclidine Scrn (NotDetected) Ur Amphetamines Screen (NotDetected) U Methamphetamines Scrn (NotDetected) U Benzodiazepines Scrn (NotDetected) Urine Cocaine Screen (NotDetected) U Marijuana (THC) Screen (NotDetected) Trichomonas Ag (Rapid) Negative (Negative) Disposition Clinical Impression: Nausea & vomiting Disposition: HOME SELF-CARE Condition: Stable Instructions (If sedation given, give patient instructions): Acute Nausea and Vomiting (ED) Additional Instructions: Please return to the emergency department with any concerning, new, worsening symptoms. Please follow-up with neurologist next 24-48 hours. Please follow up with primary care provider next 24-48 hours. Is patient prescribed a controlled substance at d/c from ED?: No Referrals: Steph Batres MD [Primary Care Provider] - 1-2 days Brian Shea MD [STAFF PHYSICIAN] - 1-2 days Time of Disposition: 14:28
--- NOTE | 2021-03-26 12:54 | CT ---
EXAMINATION TYPE: CT brain wo con DATE OF EXAM: 03/26/2021 COMPARISON: None. HISTORY: syncopal episode, light sensitivity, headache, dizziness, nausea CT DLP: 1106.4 mGycm. Automated Exposure Control for Dose Reduction was Utilized. TECHNIQUE: CT scan of the head is performed without contrast. FINDINGS: There is no acute intracranial hemorrhage, mass effect, or midline shift identified. The ventricles and sulci are within normal limits in size. Segundo-white matter differentiation is maintain ed. The globes are intact and the visualized sinuses are clear. IMPRESSION: No acute intracranial hemorrhage or midline shift is seen.
[2021-03-26 13:44] LABS: Amphetamine Screen,Urine Not Detected (NotDetected); Barbiturate Screen,Urine Not Detected (NotDetected); Benzodiazepines Screen,Urine Not Detected (NotDetected); Cocaine Screen,Urine Not Detected (NotDetected); Methadone Screen, Urine Not Detected (NotDetected); Opiate Screen,Urine Not Detected (NotDetected); Oxycodone Screen, Urine Not Detected (NotDetected); Phencyclidine Screen,Urine Not Detected (NotDetected); Tricyclic Antidepressant,Urine Not Detected (NotDetected); Urn Cannabinoid Scrn Detected (NotDetected)
[2021-03-26 14:44] VITALS: PULSE 82; RESP 16
[2021-03-26 14:50] VITALS: BP 130/101
== END 2021-03-26 14:50 | disposition home or self-care (01) ==
LOC: EC 11:02
DX: R11.2 Nausea with vomiting, unspecified (principal); F17.290 Nicotine dependence, other tobacco product, uncomplicated
CPT/HCPCS: 36415; 80053; 82375; 83605; 83690; 85025; 81003; 81025; 87808; 87491; 87591; 80306; 70450; 99284; 96374; 96361; J2405